=== PATIENT | male | born 1940 | race Caucasian/White ===

== ENCOUNTER → 2020-01-20 | Outpatient (CLI) | payer OTHER ==
[~2020-01-20] MED LIST: AMIODARONE HCL400 MG PO; ASA81BEC PO; CARDIZEM SR 60M60 MG PO; DILTIAZEM ER180 M2 PO; FISH OIL 1,001000 M3 PO; FRUIT C-100100 MG PO; HYDROCHLOROTHIA25 M2 PO; LISINOPRIL-HCT1 EAC1 PO; METFORMIN HCL500 M3 PO; SYNTHROID112 MC1 PO; TOPROL XL25 MG PO; XARELTO20 MG PO; ZOCOR 20 MG TAB20 M1 PO
== END ==
LOC: SJCVCIMAG 14:25
PROVIDERS: ATTEND Internal Medicine Cardiovascular Disease
DX: R94.31 Abnormal electrocardiogram [ECG] [EKG] (principal); I65.23 Occlusion and stenosis of bilateral carotid arteries; I48.91 Unspecified atrial fibrillation

== ENCOUNTER 2020-01-21 09:39 | Outpatient (CLI) | payer OTHER ==
[~2020-01-21] VITALS: Ht 182.9 cm; Wt 126.1 kg
[2020-01-21] VITALS (9 sets, daily range): BP systolic 113–135; BP diastolic 61–79
--- NOTE | ~2020-01-21 | D ---
[facility] [place] [address] DISCHARGE SUMMARY Name: FREDA PARADA Room #: 213-P [facility] Roger#: [id number] Admission: 01/21/20 Attend Phys: Brian Warren MD, Discharge: Date of : 38 Report #: [id number] THIS REPORT FOR: cc: NO FAMILY PHYSICIAN or PCP NO FAMILY PHYSICIAN or PCP Brian Warren MD [facility] ~ THIS REPORT FOR: //name// CC: Brian Warren NO PCP HOSPITAL COURSE: The patient is an 79-year-old male who presented with atrial fibrillation with rapid ventricular response and subsequently inferior wall ischemia. He was seeking a second opinion regarding this. He was brought in for cardiac catheterization to delineate the anatomy prior to anticoagulation. He had moderate 3-vessel disease, but had a high-grade mid RCA, which was extensively calcified vessel. Angioplasty was performed, although due to technical difficulty and calcification, a 1.5 balloon is all that could be delivered in the mid RCA. There was some improvement in the distal below flow, but obviously significant residual. He has not really had much in the way of anginal symptoms, some dyspnea. His AFib was better rate controlled and subsequently placed on amiodarone drip and brought in and kept overnight for DOROTEO cardioversion. Dr. Leach perform a DOROTEO, see his dictation, mild LV dysfunction, biatrial enlargement and then successfully cardioverted to sinus rhythm. Given a shot of Lovenox, but then will be switched over to Xarelto 20 mg every day, amiodarone 400 every day and will taper that off after a month, diltiazem 180 mg a day and then continue lisinopril HCT, metformin, which will be restarted tomorrow 500 b.i.d. I will continue baby aspirin for now, but probably see in the next 1-3 months. Continue with anticoagulation only at that time. DISCHARGE DIAGNOSES: 1. Coronary artery disease with percutaneous transluminal coronary angioplasty of subtotal mid RCA, moderate left-sided disease. 2. Atrial fibrillation with rapid ventricular response, successfully cardioverted. There obviously was no evidence of thrombus and now chronically anticoagulated on a direct oral anticoagulant. 3. Hypertension. 4. Hypercholesterolemia. He will also continue his simvastatin to clarify. No lifting for 48 hours. No lying in tub, Jacuzzi or farrar for a week. Followup scheduled here in 1 month. He will call with any issues. [address] [address] DISCHARGE SUMMARY Name: FREDA PARADA Room #: 213-P [facility] Nagel#: [id number] Admission: 01/21/20 Attend Phys: Brian Warren MD, Discharge: Date of : 38 Report #: [id number] Thank you for allowing us to participate in the care of this patient. By: 0957 [id number] Brian Warren MD, FACC /nt
[2020-01-21 11:57] LABS: ABSOLUTE NEUTROPHILS 3.7 thou/uL (1.4-8.2); BASOPHILS 0.7 % (0.0-2.0); EOSINOPHILS 3.5 % (0.0-3.0); HEMATOCRIT 43.4 % (42.0-52.0); HEMOGLOBIN 14.4 gm/dL (14.0-18.0); MCH 31.2 pg (26.0-34.0); MCHC 33.2 g/dL (28.0-37.0); MCV 93.9 fL (80.0-100.0); MONOCYTES 7.2 % (1.0-8.0); PLATELET COUNT 264 thou/uL (150-400); POLYS 49.6 % (36.0-66.0); RBC 4.62 mil/uL (4.50-6.00); RDW 14.2 % (10.5-14.5); WBC 7.4 thou/uL (4.0-11.0)
[2020-01-21] MEDS ORDERED: FRUIT C-100100 MG PO (11:57)
[2020-01-21] MEDS ORDERED: ASA81BEC PO (11:57)
[2020-01-21] MEDS ORDERED: CARDIZEM SR 60M60 MG PO (12:01)
[2020-01-21] MEDS ORDERED: HYDROCHLOROTHIA25 M2 PO (12:01)
[2020-01-21] MEDS ORDERED: SYNTHROID112 MC1 PO (12:02)
[2020-01-21] MEDS ORDERED: LISINOPRIL-HCT1 EAC1 PO (12:03)
[2020-01-21] MEDS ORDERED: FISH OIL 1,001000 M3 PO (12:04)
[2020-01-21] MEDS ORDERED: METFORMIN HCL500 M3 PO (12:04)
[2020-01-21 12:05] LABS: CALCIUM 9.1 mg/dL (8.5-10.1); CREATININE 1.6 mg/dL (0.7-1.3); POTASSIUM 3.6 mmol/L (3.5-5.1)
[2020-01-21] MEDS ORDERED: ZOCOR 20 MG TAB20 M1 PO (12:05)
--- NOTE | 2020-01-21 18:09 | CATHLAB ---
[facility] [place] [address] INVASIVE PROCEDURE REPORT Name: FREDA PARADA Room #: 213-P [facility] M.R.#: [id number] Admission: 01/21/20 Attend Phys: Brian Warren MD, Discharge: Date of : 36 Report #: [id number] THIS REPORT FOR: cc: NO FAMILY PHYSICIAN or PCP NO FAMILY PHYSICIAN or PCP Brian Warren MD [facility] ~ APPROVED REPORT Study performed: 01/21/2020 14:20:25 Patient Details Patient Status: Out-Patient Room #: The patient is a 79 year-old male Event Personnel Brian Warren Accounts Receivable Coordinator, Eliot King RN RN, Manny Layne RTR Monitor, Sheila Hassan RTR Scrub, Nuzhat Veronica RN RN, Isaiah Luna RN, Gloria Schafer RT(R)() Rob, Олег Damon RTR Monitor, Mariela Godinez RN pressure testing technician Performed Art Access - R femoral artery* Left Heart Cath w/or w/o Coronaries 6418918 [facility] PTCA Single Vessel RCA 9829724 [place] [address] Initial Mod Sed Same Phys/QHP Gr5y 434191 23900 Mod Sed Same Phys/QHP Ea 030512 Hemostasis w/ Mynx Indication Chest pain Procedure Narrative The Right Groin^ was infiltrated with 1% Lidocaine subcutaneous anesthesia. A PINNACLE 6FR Sheath #[id number] sheath was inserted into the RFA^. Coronary angiography was performed using coronary diagnostic catheters. The right coronary system was accessed and visualized with a JR4 catheter. The left coronary system was accessed and visualized with a JL4 catheter. The left ventricle was accessed and visualized with a PIGTAIL catheter. Left ventricular/Aortic Valve gradient assessed via catheter pullback. Left ventriculogram was performed in 30 degree projection. Closure device was deployed with a 6 Fr MYNXGRIP 6/7F #[id number]. The patient tolerated the procedure well and there were no complications associated with the procedure. There was no hematoma. Intraoperative Conscious Sedation [address] [address] INVASIVE PROCEDURE REPORT Name: FREDA PARADA Idalia Room #: 213-P [facility]#: [id number] Admission: 01/21/20 Attend Phys: Brian Warren, Discharge: Date of : 38 Report #: [id number] Sedation start time: 1553 Case end Time: 1721 Fentanyl 100 mcg Versed 2 mg Fluoro Time: 21.32 minutes Dose: DAP 07376.70 cGycm2 2408 mGy Contrast Type and Amount: Visipaque 130 ml Hemodynamics The aortic pressure is 121/73 mmHg with a mean of 88 mmHg. The left ventricular pressure is 113/10 mmHg with a mean of mmHg. The left ventricular end diastolic pressure is 34 mmHg. PCI Technique Lesion Percutaneous coronary intervention was performed on the mid right coronary artery. A LAUNCHER 6FR JR 4 #[id number] Guide Catheter was used to engage the ostium. A Luge Wire .014 x 182CM #[id number] Interventional Guidewire was used to cross the lesion. BALLOON DILATION A Balloon catheter Sprinter OTW 1.5 x 20 #[id number] was inserted and inflated up to 11.00atm for 31seconds. Additional Inflation: 12.00atm for 45seconds. Additional Balloon was Sprinter OTW 2.0x12mm, inflated 16 KATHERINE for 35 secs and 20 KATHERINE for 33 secs Conclusion #1. Normal left ventricular size and mild global hypokinesis EF 50% range #2 PTCA of the mid RCA high-grade and significantly calcified vessel dominant. 99% to approximately 70 to 80% residual only able to deliver a 1.5 mm balloon through this extremely tortuous and calcified vessel. DEAN grade III flow #3 large left main with some mild ostial disease of 30% giving rise to LAD and circumflex #4 LAD with mild proximal calcification eccentric irregularities of 30 to 40%. Preserved vessel high-grade distal apical stent occlusion #5 circumflex OM with ostial disease of 40 to 50% mild disease in the first OM and circumflex in the AV groove. Recommendations and plan: Continue aggressive risk factor modification. This is extensive calcified and tortuous RCA. If further attempt would need further support due to tortuosity rota stent not an option possible Cutting Balloon and or guide liner for support. Although dominant vessel patient is asymptomatic from this lesion. There is some improvement from the 1.5 mm balloon and [facility] [address] [place] [address] INVASIVE PROCEDURE REPORT Name: FREDA PARADA Room #: 213-P [facility] M.R.#: [id number] Admission: 01/21/20 Attend Phys: Brian Warren, Discharge: Date of : 38 Report #: [id number] improvement in flow. Would continue with aggressive medical therapy. Patient is admitted to CCU for DOROTEO cardioversion in a.[facility]. fib with rapid ventricular response will be controlled with IV beta-patito and amiodarone bolus and drip. Hemodynamically stable and pain-free. <ELECTRONICALLY SIGNED> By: Brian Warren MD, [facility] 01/21/201807 07 07 Brian Warren MD, FACC /INF
--- NOTE | 2020-01-21 18:45 | NUR ---
ASSUMMED PT CARE AT APPROXIMATELY 1700. PT A&O X4. ASSESSMENT CHARTED. FALL PRECAUTIONS IN PLACE. PT DENIES HAVING CHEST PAIN. PT DENIES HAVING SOB. PT DENIES HAVING ACUTE PAIN. R GROIN C/D/I. NO HEMATOMA. VITAL SIGNS STABLE. BLOOD SUGAR STABLE. PT IN BEDREST. PT COMFORTABLE. PT DENIES HAVING FURTHER CONCERNS.
--- NOTE | 2020-01-21 18:47 | NUR ---
VASCULAR ACCESS CONSULTED FOR PICC LINE AFTER HEART CATH. RN CALLED TO CLARIFY AND PIV IS ADEQUATE, PICC NOT NEEDED
[2020-01-22] VITALS: BP 140/75
[2020-01-22 04:00] VITALS: BP 138/81
--- NOTE | 2020-01-22 04:40 | NUR ---
ASSUMED CARE FROM DAY SHIFT PT, PT ALERT AND ORIENTED X4 DENIES CHEST PAINOR SOA , RIGHT GROIN WITH 2X2 AND TRANSPARENT DRESSING INTACT NO BLEEDING NOTED, AMIONDARONE GTT INTACT AND INFUSING WELL , FOLLOWING PROTOCOL.PT RESTING WELL THROUGHOUT INTACT HOURLY ROUNDS. LASTING FLOORWORKER SHOWS AFIB RATE 74 .
[2020-01-22 05:59] LABS: HEMATOCRIT 37.2 % (42.0-52.0); HEMOGLOBIN 12.6 gm/dL (14.0-18.0); MCH 31.6 pg (26.0-34.0); MCHC 33.9 g/dL (28.0-37.0); MCV 93.2 fL (80.0-100.0); RDW 14.3 % (10.5-14.5); WBC 5.8 thou/uL (4.0-11.0)
[2020-01-22 06:21] LABS: CALCIUM 8.1 mg/dL (8.5-10.1); CREATININE 1.4 mg/dL (0.7-1.3); POTASSIUM 3.2 mmol/L (3.5-5.1)
[2020-01-22 07:30] VITALS: BP 132/85
[2020-01-22 08:15] VITALS: BP 132/85
--- NOTE | 2020-01-22 08:29 | EKG ---
[facility] [place] [address] ELECTROCARDIOGRAM REPORT Name: FREDA PARADA Idalia Room #: 213-P [facility] M.R.#: [id number] Admission: 01/21/20 Attend Phys: Brian Warren MD, Discharge: Date of : 38 Report #: [id number] THIS REPORT FOR: cc: NO FAMILY PHYSICIAN or PCP NO FAMILY PHYSICIAN or PCP Reynaldo Bundy MD ~ THIS REPORT FOR: //name// [facility] Test Date: 2020-01-22 Test Time: 07:09:40 Pat Name: FREDA PARADA Department: Room: 213 P Gender: M Interior Decorator: KRYSTINA : 1940 Requested By: Brian Warren Order Number: [id number] MD: Reynaldo Bundy Measurements Intervals [place] Rate: 113 P: [place]: QRS: -10 QRSD: 87 T: -88 QT: 361 QTc: 495 Interpretive Statements Atrial fibrillation Abnormal R-wave progression, early transition Borderline T abnormalities, diffuse leads Borderline prolonged QT interval Baseline wander in lead(s) V6 No previous ECG available for comparison Electronically Signed On 01-22-2020 8:28:54 CDT by Reynaldo Bundy [email or web address] <ELECTRONICALLY SIGNED> By: Reynaldo Bundy MD 01/22/20827 8 8 Reynaldo Bundy MD /EPI
--- NOTE | 2020-01-22 09:25 | TEE ---
[facility] [place] [address] TRANSESOPHAGEAL ECHOCARDIOGRAM Name: FREDA PARADA Room #: 213-P [facility] M.R.#: [id number] Admission: 01/21/20 Attend Phys: Brian Warren MD, Discharge: Date of : 38 Report #: [id number] THIS REPORT FOR: cc: NO FAMILY PHYSICIAN or PCP NO FAMILY PHYSICIAN or PCP Eusebio Leach MD [facility] ~ APPROVED REPORT Study performed: 01/22/2020 08:33:49 EXAM: Transesophageal Echocardiogram with Doppler and Cardioversion Patient Location: [facility] Room #: 213 Status: routine BSA: 2.45 HR: 122 bpm BP: 138/81 mmHg Rhythm: Atrial Fibrillation Other Information Study Quality: Good Indications Atrial Fibrillation Cardioversion Hx: CAD with PTCA 01/21/20. Procedure After obtaining informed consent, patient underwent transesophageal echo in the [employer] [facility] [employer]. Type of Sedation : Conscious Sedation Sedation was administered by CARLY Hernandez. Sedation was achieved intravenously with: Versed (5) Fentanyl (100) Transesophageal probe was inserted and advanced into esophagus without difficulty by Eusebio Leach MD. Echo enhancement indication: R/O Septal defect. Echo enhancement agent administered: Agitated Saline The DOROTEO was performed without complications. Synchronized Cardioversion acheived with 120 Joules after 1 attempt(s). Rhythm following Synchronized Cardioversion: Normal Sinus Rhythm Throughout the procedure, the blood pressure, pulse oximetry, cardiac [facility] [address] [address] TRANSESOPHAGEAL ECHOCARDIOGRAM Name: FREDA PARADA Room #: 213-P [facility].#: [id number] Admission: 01/21/20 Attend Phys: Brian Warren, Discharge: Date of : 38 Report #: [id number] rhythm, and rate were monitored. The patient tolerated the procedure without adverse effects. Recovery from conscious sedation was uneventful and vital signs were stable. Left Ventricle The left ventricle is normal size. There is normal left ventricular wall thickness. Left ventricular systolic function is mildly decreased. LVEF is 45%. Right Ventricle The right ventricle is normal size. The right ventricular systolic function is normal. Atria Left atrium is normal in size. No thrombus is visualized in the left atrium or appendage. No shunting noted with contrast bubble injection. The right atrium size is normal. Aortic Valve Aortic valve leaflets are mildly sclerotic. Mild aortic regurgitation. There is no aortic valvular stenosis. Mitral Valve The mitral valve is normal in structure. Mild-moderate mitral regurgitation. No evidence of mitral valve stenosis. Tricuspid Valve The tricuspid valve is normal in structure. Trace tricuspid regurgitation. Pulmonic Valve The pulmonary valve is normal in structure. Trace pulmonic regurgitation. Great Vessels The aortic root is normal in size. The ascending aorta is normal in size. Atherosclerotic plaque is present in the descending aorta. IVC is normal in size and collapses >50% with inspiration. Pericardium There is no pericardial effusion. <Conclusion> Left ventricular systolic function is mildly decreased. [facility] [address] [place] [address] TRANSESOPHAGEAL ECHOCARDIOGRAM Name: FREDA PARADA Room #: 213-P [facility]..#: [id number] Admission: 01/21/20 Attend Phys: Brian Warren, Discharge: Date of : 38 Report #: [id number] LVEF is 45%. Both atria are normal in size. No thrombus is visualized in the left atrium or appendage. No shunting noted with contrast bubble injection. Aortic valve leaflets are mildly sclerotic. Mild aortic regurgitation, no stenosis. The mitral valve is normal in structure. Mild-moderate mitral regurgitation. The ascending aorta is normal in size. Atherosclerotic plaque is present in the descending aorta. There is no pericardial effusion. Successful cardioversion of atrial fibrillation to sinus rhythm following one 120J biphasic synchronous shock. <ELECTRONICALLY SIGNED> By: Eusebio Leach MD, FACC 01/22/20924 4 4 Eusebio Leach MD, FACC /INF
[2020-01-22] MEDS ORDERED: XARELTO20 MG PO (09:30)
[2020-01-22] MEDS ORDERED: TOPROL XL25 MG PO (09:36)
[2020-01-22] MEDS ORDERED: DILTIAZEM ER180 M2 PO ×2 (09:36→09:37)
[2020-01-22] MEDS ORDERED: AMIODARONE HCL400 MG PO (09:38)
[2020-01-22 11:30] VITALS: BP 127/82
[2020-01-22 14:39] VITALS: BP 127/82
--- NOTE | 2020-01-23 09:03 | EKG ---
[facility] [place] [address] ELECTROCARDIOGRAM REPORT Name: FREDA PARADA Idalia Room #: DEP [facility].#: [id number] Admission: 01/21/20 Attend Phys: Brian Warren MD, Discharge: 01/22/20 Date of : 38 Report #: [id number] THIS REPORT FOR: cc: NO FAMILY PHYSICIAN or PCP NO FAMILY PHYSICIAN or PCP Eusebio Leach MD [facility] ~ THIS REPORT FOR: //name// [facility] Test Date: 2020-01-22 Test Time: 09:28:49 Pat Name: FREDA PARADA Department: Room: 213 P Gender: M Gynecology Teacher: KRYSTINA : 1940 Requested By: Eusebio Leach Order Number: [id number] MD: Eusebio Leach Measurements Intervals [place] Rate: 69 P: -8 SC: 179 QRS: -22 QRSD: 99 T: -47 QT: 491 QTc: 526 Interpretive Statements Sinus rhythm Nonspecific T abnormalities, inferior leads Prolonged QT interval Compared to ECG 01/22/2020 07:09:4 Atrial fibrillation no longer present T-wave abnormality still present Electronically Signed On 01-23-2020 9:03:47 CDT by Eusebio Leach [email or web address] <ELECTRONICALLY SIGNED> By: Eusebio Leach MD, [facility] 01/23/20902 7 7 Eusebio eLach MD, [facility] /EPI
== END 2020-01-22 15:27 | disposition home or self-care (01) ==
LOC: CATH 09:39 → 2N 17:48 → CATH 01-22 15:27
PROVIDERS: ATTEND Internal Medicine Cardiovascular Disease
DX: R07.9 Chest pain, unspecified (principal); I48.91 Unspecified atrial fibrillation; I25.10 Atherosclerotic heart disease of native coronary artery without angina pectoris; I70.0 Atherosclerosis of aorta; I08.3 Combined rheumatic disorders of mitral, aortic and tricuspid valves; I10 Essential (primary) hypertension; E11.9 Type 2 diabetes mellitus without complications; E78.5 Hyperlipidemia, unspecified; E03.9 Hypothyroidism, unspecified; G47.33 Obstructive sleep apnea (adult) (pediatric); Z85.828 Personal history of other malignant neoplasm of skin; Z98.890 Other specified postprocedural states; Z79.899 Other long term (current) drug therapy; Z90.49 Acquired absence of other specified parts of digestive tract; Z86.73 Personal history of transient ischemic attack (TIA), and cerebral infarction without residual deficits; Z79.01 Long term (current) use of anticoagulants; Z82.49 Family history of ischemic heart disease and other diseases of the circulatory system
CPT/HCPCS: 10081

== ENCOUNTER → 2020-02-19 | Outpatient (CLI) | payer OTHER | LOC: SJCVC 13:17 | PROVIDERS: ATTEND Internal Medicine Cardiovascular Disease | DX: I11.9 Hypertensive heart disease without heart failure (principal); I48.91 Unspecified atrial fibrillation; E11.9 Type 2 diabetes mellitus without complications; I63.9 Cerebral infarction, unspecified; I25.10 Atherosclerotic heart disease of native coronary artery without angina pectoris; E78.00 Pure hypercholesterolemia, unspecified; Z79.899 Other long term (current) drug therapy ==

== ENCOUNTER → 2020-07-12 | Outpatient (CLI) | payer OTHER | LOC: SJCVCIMAG 09:28 | PROVIDERS: ATTEND Internal Medicine Cardiovascular Disease | DX: R94.31 Abnormal electrocardiogram [ECG] [EKG] (principal); I11.9 Hypertensive heart disease without heart failure; I25.10 Atherosclerotic heart disease of native coronary artery without angina pectoris; I48.91 Unspecified atrial fibrillation; Z86.73 Personal history of transient ischemic attack (TIA), and cerebral infarction without residual deficits; E78.00 Pure hypercholesterolemia, unspecified; E11.9 Type 2 diabetes mellitus without complications; R29.6 Repeated falls; I65.29 Occlusion and stenosis of unspecified carotid artery; E03.9 Hypothyroidism, unspecified; Z90.49 Acquired absence of other specified parts of digestive tract; Z98.890 Other specified postprocedural states; Z79.82 Long term (current) use of aspirin; Z79.84 Long term (current) use of oral hypoglycemic drugs; Z79.899 Other long term (current) drug therapy; Z87.891 Personal history of nicotine dependence ==

== ENCOUNTER → 2021-01-17 | Outpatient (CLI) | payer OTHER | LOC: SJCVCIMAG 08:27 | PROVIDERS: ATTEND Internal Medicine Cardiovascular Disease | DX: I65.23 Occlusion and stenosis of bilateral carotid arteries (principal); R94.31 Abnormal electrocardiogram [ECG] [EKG]; I11.9 Hypertensive heart disease without heart failure; I25.10 Atherosclerotic heart disease of native coronary artery without angina pectoris; E78.00 Pure hypercholesterolemia, unspecified; I48.91 Unspecified atrial fibrillation; E11.9 Type 2 diabetes mellitus without complications; R29.6 Repeated falls; E78.5 Hyperlipidemia, unspecified; G47.33 Obstructive sleep apnea (adult) (pediatric); Z98.61 Coronary angioplasty status; Z90.49 Acquired absence of other specified parts of digestive tract; Z88.8 Allergy status to other drugs, medicaments and biological substances; Z79.82 Long term (current) use of aspirin; Z79.899 Other long term (current) drug therapy; Z86.73 Personal history of transient ischemic attack (TIA), and cerebral infarction without residual deficits; Z87.891 Personal history of nicotine dependence; Z82.49 Family history of ischemic heart disease and other diseases of the circulatory system ==